=== PATIENT | female | born 1930 | race Caucasian/White ===

== ENCOUNTER 2018-04-17 09:00 | Day surgery (SDC) | payer OTHER ==
[~2018-04-17] VITALS: Ht 170.2 cm; Wt 63.0 kg
[~2018-04-17 09:00] MED LIST: CEFAZOLIN 1 GM IVPB PREMIX 50 ML IV ONE
[2018-04-17] MEDS ORDERED: LR 1,000 ML IV SCH (12:22)
[2018-04-17] MEDS ORDERED: MORPHINE 4 MG/ML INJ. SYRINGE IVP PRN ×2 (12:30)
[2018-04-17] MEDS ORDERED: MORPHINE SULFATE 10 MG/ML VIAL IVP PRN (12:30)
[2018-04-17] MEDS ORDERED: MEPERIDINE HCL/PF 25 MG/ML DISP.SYRIN IVP PRN (12:30)
[2018-04-17] MEDS ORDERED: ISOSULFAN BLUE 5 ML VIAL (LYMPHAZURIN) ONE (12:45)
[2018-04-17] MEDS ORDERED: WATER FOR IRRIGATION,STERILE 1,000 ML IRRIG.SOLN IR ONE (12:45)
[2018-04-17] MEDS ORDERED: PROPOFOL 200MG/ 20ML VIAL (DIPRIVAN) IV ONE (12:45)
[2018-04-17] MEDS ORDERED: fentaNYL CITRATE 250 MCG/5 ML AMP ONE (12:45)
[2018-04-17] MEDS ORDERED: DEXAMETHASONE SOD PHOSPHATE 4 MG/ML VIAL ONE (12:45)
[2018-04-17] MEDS ORDERED: METOCLOPRAMIDE HCL 10 MG/2 ML VIAL ONE (12:45)
[2018-04-17] MEDS ORDERED: MIDAZOLAM HCL 5 MG/ML VIAL (VERSED) IV ONE (12:45)
[2018-04-17] MEDS ORDERED: ROCURONIUM BROMIDE 10 MG/ML (ZEMURON) ONE (12:45)
[2018-04-17] MEDS ORDERED: ONDANSETRON HCL 4 MG/2 ML VIAL IVP PRN (12:45)
[2018-04-17] MEDS ORDERED: SEVOFLURANE 15 MIN GAS INH ONE (12:45)
[2018-04-17] MEDS ORDERED: ONDANSETRON HCL 4 MG/2 ML VIAL ONE (12:45)
[2018-04-17] MEDS ORDERED: KETOROLAC TROMETHAMINE 15 MG VIAL ONE (12:45)
[2018-04-17] MEDS ORDERED: ACETAMINOPHEN 325 MG TABLET PO PRN (12:45)
[2018-04-17] MEDS ORDERED: LR 1,000 ML IV.SOLN IV ONE (12:45)
[2018-04-17 14:06] VITALS: BP_SYST 157
[2018-04-17] MEDS ORDERED: HYDROmorphone 1 MG INJ. 1 MG/ML AMPUL IVP PRN (15:30)
[2018-04-17] MEDS ORDERED: HYDROcodone/ACETAMIN 5-325 MG TAB (NORCO/ VICODIN) PO PRN ×2 (15:30)
[2018-04-17] MEDS: D5/0.45 NS 1,000 ML IV SCH ×2 (16:20→23:04)
[2018-04-17] MEDS: CEFAZOLIN 1 GM IVPB PREMIX 50 ML IV SCH ×2 (16:20→23:03)
[2018-04-17 20:00] VITALS: BP_SYST 102
[2018-04-17] MEDS: FAMOTIDINE 20 MG TABLET PO SCH (21:00)
[2018-04-18 00:37] VITALS: BP_SYST 104
[2018-04-18 08:08] VITALS: BP_SYST 119
[2018-04-18 09:24] VITALS: BP_SYST 119
[2018-04-18] MEDS: FAMOTIDINE 20 MG TABLET PO SCH (09:56)
[2018-04-18 12:57] VITALS: BP_SYST 112
== END 2018-04-18 10:40 | disposition home or self-care (01) ==
LOC: SDS 09:00 → SMU 09:00 → EDSTATUS 11:00 → SMU 13:50 → SDS 04-18 10:40
PROVIDERS: ATTEND Colon & Rectal Surgery
DX: C50.911 Malignant neoplasm of unspecified site of right female breast (principal); E78.5 Hyperlipidemia, unspecified; K21.0 Gastro-esophageal reflux disease with esophagitis; G89.29 Other chronic pain; N18.3 Chronic kidney disease, stage 3 (moderate); C77.3 Secondary and unspecified malignant neoplasm of axilla and upper limb lymph nodes
CPT/HCPCS: 19301; 38525; 78195; 87081; 88307; 88341; 88342; A9541; J0690; J1100; J1885; J2250; J2405; J2704; J2765; J3010; J7120; Q9968